=== PATIENT | female | born 1975 | race African-American/Black ===

== ENCOUNTER 2023-01-24 20:57 | Emergency (ER) | payer MEDICAID ==
[~2023-01-24] VITALS: Ht 167.6 cm; Wt 91.0 kg
[2023-01-24 21:03] VITALS: BP 138/77; PULSE 79; RESP 16; TEMP 98; O2SAT 100
[2023-01-24] MEDS ORDERED: MECL-299 MT (23:09)
== END 2023-01-24 23:44 | disposition home or self-care (01) ==
LOC: ER 20:57
DX: R51.9 Headache, unspecified (principal); Z88.5 Allergy status to narcotic agent; Z98.51 Tubal ligation status
CPT/HCPCS: 81025; 99284

== ENCOUNTER 2023-02-05 02:28 | Emergency (ER) | payer MEDICAID ==
[~2023-02-05] VITALS: Ht 170.2 cm; Wt 87.0 kg
[~2023-02-05 02:28] MED LIST: MECL-299 MT
[2023-02-05 02:32] VITALS: TEMP 98.4; O2SAT 100
[2023-02-05] MEDS ORDERED: CEPH500C2 MT (04:01)
[2023-02-05] MEDS ORDERED: SULF1TAB48 MT (04:01)
[2023-02-05 04:35] VITALS: BP 135/69; PULSE 75; RESP 16
== END 2023-02-05 04:37 | disposition home or self-care (01) ==
LOC: ER 02:40
DX: L02.412 Cutaneous abscess of left axilla (principal); D64.9 Anemia, unspecified; Z98.51 Tubal ligation status; Z88.8 Allergy status to other drugs, medicaments and biological substances
CPT/HCPCS: 99283